=== PATIENT | female | born 1960 | race Caucasian/White ===

== ENCOUNTER 2023-08-26 19:03 | Inpatient (IN) | payer OTHER, MEDICAID ==
[~2023-08-26] VITALS: Ht 157.5 cm; Wt 91.7 kg
[2023-08-26 19:27] VITALS: BP_SYST 128; PULSE 105; RESP 24; TEMP 98.1; O2SAT 99
[2023-08-26] MEDS: IPRATROPIUM/ALBUTEROL SULFATE 3 ML AMPUL.NEB (DUONEB) INH ONE (19:42)
[2023-08-26] MEDS: methylPREDNISolone SOD SUCC/PF 62.5 MG/ML VIAL IVP ONE (20:18)
[2023-08-26 20:28] LABS: BASOPHILS % (AUTO) 0.3 % (0.0-2.0); EOSINOPHILS % (AUTO) 0.7 % (0.0-4.0); HEMATOCRIT 28.7 % (36-48); HEMOGLOBIN 9.7 g/dL (12.0-16.0); LYMPHOCYTES # (AUTO) 0.5 K/uL (1.0-5.5); LYMPHOCYTES % (AUTO) 8.7 % (20.5-51.5); MEAN CORPUSCULAR HEMOGLOBIN 31 pg (27-31); MEAN CORPUSCULAR HGB CONC 34 % (32-36); MEAN CORPUSCULAR VOLUME 91 fL (79.0-98.0); MONOCYTES # (AUTO) 0.7 K/uL (0.0-1.0); MONOCYTES % (AUTO) 11.5 % (1.7-9.3); NEUTROPHILS # (AUTO) 4.5 K/uL (1.8-7.7); NEUTROPHILS % (AUTO) 78.8 % (40.0-70.0); PLATELET COUNT (AUTO) 194 K/uL (130-430); RED BLOOD CELL COUNT(AUTO) 3.16 MIL/uL (4.2-6.2); RED CELL DISTRIBUTION WIDTH 15.7 % (9.0-15.0); WHITE BLOOD COUNT (AUTO) 5.7 K/uL (4.8-10.8)
[2023-08-26 20:46] LABS: CALCIUM 8.9 mg/dL (8.4-11.0); CARBON DIOXIDE 36 mmol/L (23-29); CHLORIDE 101 mmol/L (98-107); CREATININE 1.09 mg/dL (0.55-1.30); GFR AFRICAN AMERICAN 65 mL/min (>90); GLUCOSE 109 mg/dL (74-106); POTASSIUM 3.6 mmol/L (3.5-5.1); SODIUM SERUM 139 mmol/L (136-145); UREA NITROGEN, BLOOD 16 mg/dL (8-21)
[2023-08-26 20:49] LABS: GFR NON AFRICAN-AMERICAN 54 mL/min (>90)
[2023-08-26 20:50] LABS: ANION GAP < 3 (5-15)
[2023-08-26 20:53] LABS: INR 1.4 (0.8-1.2)
[2023-08-26 20:56] LABS: PROTHROMBIN TIME 14.5 SECS (9.5-12.5)
[2023-08-26 21:38] LABS: BILIRUBIN,URINE NEGATIVE (NEGATIVE); BLOOD, URINE 1+ (NEGATIVE); COLOR,URINE YELLOW (YELLOW); GLUCOSE,URINE NEGATIVE (NEGATIVE); KETONES,URINE NEGATIVE (NEGATIVE); LEUKOCYTE ESTERASE ,URINE NEGATIVE (NEGATIVE); NITRITE, URINE NEGATIVE (NEGATIVE); PROTEIN URINE 2+ (NEGATIVE); UROBILINOGEN,URINE 0.2 (0.2-1.0)
[2023-08-26] MEDS: NS 500 ML IV ONE (21:39)
[2023-08-26] MEDS ORDERED: iohexoL 350 mgI/mL, 100 ML INFUS..BTL IV ONE (22:01)
[2023-08-26 22:09] LABS: CLARITY/URINE HAZY (CLEAR)
[2023-08-26 22:10] LABS: BACTERIA,URINE FEW /HPF (None Seen); RBC,URINE 0-3 /HPF (0-3)
[2023-08-26 22:11] LABS: HYALINE CASTS, URINE 0-10 /LPF (None Seen); MUCUS,URINE 1+ /LPF (None Seen)
[2023-08-27] MEDS: ASPIRIN 325 MG TABLET PO ONE (00:22)
[2023-08-27] MEDS: FUROSEMIDE 20 MG/2 ML VIAL IVP ONE (02:45)
[2023-08-27] MEDS ORDERED: ALBUTEROL SULFATE 0.083% 2.5 MG/3 ML VIAL.NEB INH PRN (03:00)
[2023-08-27] MEDS ORDERED: ACETAMINOPHEN 325 MG TABLET PO PRN (03:00)
[2023-08-27] MEDS ORDERED: IPRATROPIUM BROM 0.5 MG/2.5 ML VIAL.NEB (ATROVENT) INH PRN (03:00)
[2023-08-27] MEDS ORDERED: ONDANSETRON HCL 4 MG/2 ML VIAL IVP PRN (03:00)
[2023-08-27] MEDS ORDERED: MORPHINE 2 MG/ML INJ. SYRINGE IVP PRN (03:00)
[2023-08-27] MEDS ORDERED: NITROGLYCERIN 0.4 MG TAB.SUBL SL PRN (03:30)
[2023-08-27 03:33] VITALS: BP_SYST 94; PULSE 80; O2SAT 96
[2023-08-27] MEDS ORDERED: cefTRIAXone 1 GM VIAL ONE (03:41)
[2023-08-27] MEDS: cefTRIAXone 1 GM in D5W 50 ML IV ONE (03:44)
[2023-08-27 03:55] LABS: BASOPHILS % (AUTO) 0.1 % (0.0-2.0); HEMOGLOBIN 10.1 g/dL (12.0-16.0); LYMPHOCYTES # (AUTO) 0.2 K/uL (1.0-5.5); LYMPHOCYTES % (AUTO) 6.6 % (20.5-51.5); MEAN CORPUSCULAR HEMOGLOBIN 30 pg (27-31); MEAN CORPUSCULAR HGB CONC 33 % (32-36); MEAN CORPUSCULAR VOLUME 92 fL (79.0-98.0); MONOCYTES # (AUTO) 0.1 K/uL (0.0-1.0); MONOCYTES % (AUTO) 2.9 % (1.7-9.3); NEUTROPHILS # (AUTO) 3.4 K/uL (1.8-7.7); NEUTROPHILS % (AUTO) 90.4 % (40.0-70.0); PLATELET COUNT (AUTO) 194 K/uL (130-430); RED BLOOD CELL COUNT(AUTO) 3.37 MIL/uL (4.2-6.2); WHITE BLOOD COUNT (AUTO) 3.7 K/uL (4.8-10.8)
[2023-08-27 04:19] LABS: ALBUMIN 3.2 g/dL (3.4-4.8); CALCIUM 8.8 mg/dL (8.4-11.0); CREATININE 1.08 mg/dL (0.55-1.30); TOTAL BILIRUBIN 0.5 mg/dL (0.0-1.0); TOTAL PROTEIN, SERUM 6.6 g/dL (6.4-8.3)
[2023-08-27] MEDS ORDERED: LACT10SO6 PO ×2 (04:23)
[2023-08-27] MEDS ORDERED: LAMO200T2 PO (04:23)
[2023-08-27] MEDS ORDERED: ASPI-1155 PO (04:23)
[2023-08-27] MEDS ORDERED: PRO20 PO (04:23)
[2023-08-27] MEDS ORDERED: CLIN-142 PO (04:23)
[2023-08-27] MEDS ORDERED: APIX5TAB PO (04:23)
[2023-08-27] MEDS ORDERED: ALEN10TA25 PO (04:23)
[2023-08-27] MEDS ORDERED: DIVA250T PO (04:23)
[2023-08-27] MEDS ORDERED: GUAI100S14 PO (04:23)
[2023-08-27] MEDS ORDERED: PHEN30TA49 PO (04:23)
[2023-08-27] MEDS ORDERED: MOM PO (04:23)
[2023-08-27] MEDS ORDERED: OMEP20CA15 PO (04:23)
[2023-08-27] MEDS ORDERED: CALC-939 PO (04:23)
[2023-08-27] MEDS ORDERED: MIDO10TA PO (04:23)
[2023-08-27] MEDS ORDERED: LEVE1000 PO (04:23)
[2023-08-27] MEDS ORDERED: FURO-149 PO (04:23)
[2023-08-27] MEDS ORDERED: FLUT16SP16 NS (04:23)
[2023-08-27] MEDS: MIDODRINE HCL 5 MG TABLET (PROAMATINE) PO SCH (09:00)
[2023-08-27] MEDS: ASPIRIN 81 MG TAB.CHEW PO SCH (09:00)
[2023-08-27] MEDS: FUROSEMIDE 40 MG/4 ML VIAL IVP SCH ×2 (09:00→14:58)
[2023-08-27] MEDS: FLUoxetine HCL 20 MG CAPSULE (PROzac) PO SCH (09:00)
[2023-08-27] MEDS ORDERED: OMEPRAZOLE Non-Formulary 20 MG CAPSULE.DR PO SCH (09:00)
[2023-08-27] MEDS: FUROSEMIDE 40 MG TABLET PO ONE (09:30)
[2023-08-27] MEDS: NOREPINEPHRINE BITARTRATE 4 MG in D5W 246 ML IV PRN (10:28)
[2023-08-27] MEDS: HYDROcodone/ACETAMIN 5-325 MG TAB (NORCO/ VICODIN) PO PRN (11:18)
[2023-08-27] MEDS: LOSARTAN POTASSIUM 25 MG TABLET PO SCH (11:35)
[2023-08-27] MEDS: DIVALPROEX SODIUM 250 MG TAB.SR.24H (DEPAKOTE ER) PO SCH (11:35)
[2023-08-27] MEDS: PANTOPRAZOLE SODIUM 40 MG TAB PO SCH (11:36)
[2023-08-27] MEDS: LamoTRIgine 100 MG TABLET PO SCH (11:36)
[2023-08-27] MEDS: levETIRAcetam 500 MG TABLET PO SCH (11:36)
[2023-08-27] MEDS: CALCIUM CARBONATE/VITAMIN D3 1 TAB TABLET PO SCH (11:36)
[2023-08-27] MEDS ORDERED: FUROSEMIDE 20 MG TABLET PO SCH (12:15)
[2023-08-27 12:52] LABS: INR 1.3 (0.8-1.2); PROTHROMBIN TIME 13.2 SECS (9.5-12.5)
[2023-08-27] MEDS ORDERED: FUROSEMIDE 40 MG/4 ML VIAL IVP SCH (13:00)
[2023-08-27] MEDS ORDERED: NOREPINEPHRINE 4 MG/4 ML VIAL IV ONE (15:11)
[2023-08-27 20:15] VITALS: BP_SYST 118; PULSE 97; RESP 17; TEMP 96.3
[2023-08-27 20:30] VITALS: BP_SYST 118; PULSE 97; RESP 17; TEMP 96.3; O2SAT 96
[2023-08-27] MEDS ORDERED: APIXABAN 2.5 MG TABLET PO SCH (21:00)
[2023-08-27] MEDS: DIVALPROEX SODIUM 250 MG TABLET(DEPAKOTE) PO ONE (21:58)
[2023-08-27] MEDS: MIDODRINE HCL 5 MG TABLET (PROAMATINE) ONE (21:59)
[2023-08-27 22:00] VITALS: BP_SYST 145; PULSE 104; RESP 18; O2SAT 96
[2023-08-27] MEDS: NOREPINEPHRINE BITARTRATE 16 MG in NS 234 ML IV PRN (22:02)
[2023-08-27] MEDS: PHENobarbital 30 MG TABLET PO SCH (22:03)
[2023-08-27 23:00] VITALS: BP_SYST 124; PULSE 95; RESP 17; O2SAT 97
[2023-08-28] VITALS (20 sets, daily range): BP systolic 97–123; PULSE 80–95; RESP 14–25; TEMP 96.5–97.8; O2SAT 95–99
[2023-08-28 04:42] LABS: BASOPHILS % (AUTO) 0.7 % (0.0-2.0); EOSINOPHILS # (AUTO) 0.1 K/uL (0.0-0.4); EOSINOPHILS % (AUTO) 1.6 % (0.0-4.0); HEMATOCRIT 29.7 % (36-48); HEMOGLOBIN 9.7 g/dL (12.0-16.0); LYMPHOCYTES # (AUTO) 1.1 K/uL (1.0-5.5); LYMPHOCYTES % (AUTO) 19.5 % (20.5-51.5); MEAN CORPUSCULAR HEMOGLOBIN 30 pg (27-31); MEAN CORPUSCULAR HGB CONC 33 % (32-36); MEAN CORPUSCULAR VOLUME 92 fL (79.0-98.0); MONOCYTES # (AUTO) 0.7 K/uL (0.0-1.0); MONOCYTES % (AUTO) 13.3 % (1.7-9.3); NEUTROPHILS # (AUTO) 3.5 K/uL (1.8-7.7); NEUTROPHILS % (AUTO) 64.9 % (40.0-70.0); PLATELET COUNT (AUTO) 193 K/uL (130-430); RED BLOOD CELL COUNT(AUTO) 3.24 MIL/uL (4.2-6.2); RED CELL DISTRIBUTION WIDTH 15.8 % (9.0-15.0); WHITE BLOOD COUNT (AUTO) 5.4 K/uL (4.8-10.8)
[2023-08-28 05:31] LABS: CALCIUM 8.6 mg/dL (8.4-11.0); CREATININE 1.05 mg/dL (0.55-1.30); POTASSIUM 3.4 mmol/L (3.5-5.1); TOTAL BILIRUBIN 0.3 mg/dL (0.0-1.0); TOTAL PROTEIN, SERUM 6.2 g/dL (6.4-8.3)
[2023-08-28] MEDS ORDERED: KCL 40 mEq in 100 mL (PREMIX) 100 ML IV PRN ×2 (07:30→11:30)
[2023-08-28] MEDS: KCL 20 mEq in 100 mL (PREMIX) 100 ML IV ONE (08:33)
[2023-08-28] MEDS: POTASSIUM CHLORIDE 20 MEQ TABLET.ER PO ONE (08:51)
[2023-08-28] MEDS ORDERED: APIXABAN 2.5 MG TABLET PO SCH (09:00)
[2023-08-28] MEDS: APIXABAN 2.5 MG TABLET PO SCH (20:53)
[2023-08-29] VITALS (8 sets, daily range): BP systolic 107–123; PULSE 81–86; RESP 15–20; TEMP 97–98.4; O2SAT 95–100
[2023-08-29 04:42] LABS: BASOPHILS % (AUTO) 0.7 % (0.0-2.0); EOSINOPHILS # (AUTO) 0.1 K/uL (0.0-0.4); EOSINOPHILS % (AUTO) 1.9 % (0.0-4.0); HEMATOCRIT 30.4 % (36-48); HEMOGLOBIN 9.9 g/dL (12.0-16.0); LYMPHOCYTES # (AUTO) 0.9 K/uL (1.0-5.5); LYMPHOCYTES % (AUTO) 16.8 % (20.5-51.5); MEAN CORPUSCULAR HEMOGLOBIN 30 pg (27-31); MEAN CORPUSCULAR HGB CONC 33 % (32-36); MEAN CORPUSCULAR VOLUME 92 fL (79.0-98.0); MONOCYTES # (AUTO) 0.7 K/uL (0.0-1.0); MONOCYTES % (AUTO) 11.7 % (1.7-9.3); NEUTROPHILS # (AUTO) 3.9 K/uL (1.8-7.7); NEUTROPHILS % (AUTO) 68.9 % (40.0-70.0); PLATELET COUNT (AUTO) 214 K/uL (130-430); RED CELL DISTRIBUTION WIDTH 15.7 % (9.0-15.0); WHITE BLOOD COUNT (AUTO) 5.6 K/uL (4.8-10.8)
[2023-08-29 04:59] LABS: ALBUMIN 3.1 g/dL (3.4-4.8); CALCIUM 8.5 mg/dL (8.4-11.0); CREATININE 0.9 mg/dL (0.55-1.30); POTASSIUM 3.5 mmol/L (3.5-5.1); TOTAL BILIRUBIN 0.4 mg/dL (0.0-1.0); TOTAL PROTEIN, SERUM 6.3 g/dL (6.4-8.3)
[2023-08-29] MEDS: FUROSEMIDE 40 MG/4 ML VIAL IVP SCH (18:06)
[2023-08-30] VITALS (9 sets, daily range): BP systolic 105–129; PULSE 79–92; RESP 18–20; TEMP 96.5–97.7; O2SAT 95–98
[2023-08-30 05:13] LABS: BASOPHILS % (AUTO) 0.6 % (0.0-2.0); EOSINOPHILS % (AUTO) 0.9 % (0.0-4.0); HEMATOCRIT 31.8 % (36-48); HEMOGLOBIN 10.3 g/dL (12.0-16.0); LYMPHOCYTES # (AUTO) 0.8 K/uL (1.0-5.5); LYMPHOCYTES % (AUTO) 14.5 % (20.5-51.5); MEAN CORPUSCULAR HEMOGLOBIN 30 pg (27-31); MEAN CORPUSCULAR HGB CONC 32 % (32-36); MEAN CORPUSCULAR VOLUME 92 fL (79.0-98.0); MONOCYTES # (AUTO) 0.7 K/uL (0.0-1.0); MONOCYTES % (AUTO) 11.7 % (1.7-9.3); NEUTROPHILS # (AUTO) 4.1 K/uL (1.8-7.7); NEUTROPHILS % (AUTO) 72.3 % (40.0-70.0); PLATELET COUNT (AUTO) 264 K/uL (130-430); RED BLOOD CELL COUNT(AUTO) 3.46 MIL/uL (4.2-6.2); RED CELL DISTRIBUTION WIDTH 16.3 % (9.0-15.0); WHITE BLOOD COUNT (AUTO) 5.7 K/uL (4.8-10.8)
[2023-08-30 05:17] LABS: ALBUMIN 3.3 g/dL (3.4-4.8); CALCIUM 8.8 mg/dL (8.4-11.0); CREATININE 0.87 mg/dL (0.55-1.30); POTASSIUM 3.6 mmol/L (3.5-5.1); TOTAL BILIRUBIN 0.4 mg/dL (0.0-1.0); TOTAL PROTEIN, SERUM 6.9 g/dL (6.4-8.3)
[2023-08-30] MEDS: FUROSEMIDE 40 MG TABLET PO ONE (15:06)
[2023-08-31] VITALS (8 sets, daily range): BP systolic 122–134; PULSE 91–100; RESP 16–18; TEMP 96.2–98.6; O2SAT 95–99
[2023-08-31 06:58] LABS: BASOPHILS % (AUTO) 0.5 % (0.0-2.0); EOSINOPHILS % (AUTO) 0.2 % (0.0-4.0); HEMATOCRIT 32.9 % (36-48); HEMOGLOBIN 10.5 g/dL (12.0-16.0); LYMPHOCYTES # (AUTO) 0.6 K/uL (1.0-5.5); LYMPHOCYTES % (AUTO) 11.7 % (20.5-51.5); MEAN CORPUSCULAR HEMOGLOBIN 30 pg (27-31); MEAN CORPUSCULAR HGB CONC 32 % (32-36); MEAN CORPUSCULAR VOLUME 92 fL (79.0-98.0); MONOCYTES # (AUTO) 0.6 K/uL (0.0-1.0); MONOCYTES % (AUTO) 12.5 % (1.7-9.3); NEUTROPHILS # (AUTO) 3.8 K/uL (1.8-7.7); NEUTROPHILS % (AUTO) 75.1 % (40.0-70.0); PLATELET COUNT (AUTO) 274 K/uL (130-430); RED BLOOD CELL COUNT(AUTO) 3.56 MIL/uL (4.2-6.2); RED CELL DISTRIBUTION WIDTH 16.5 % (9.0-15.0); WHITE BLOOD COUNT (AUTO) 5.1 K/uL (4.8-10.8)
[2023-08-31 07:06] LABS: ALBUMIN 3.4 g/dL (3.4-4.8); CALCIUM 9.3 mg/dL (8.4-11.0); CREATININE 1.03 mg/dL (0.55-1.30); POTASSIUM 3.9 mmol/L (3.5-5.1); TOTAL BILIRUBIN 0.7 mg/dL (0.0-1.0); TOTAL PROTEIN, SERUM 6.7 g/dL (6.4-8.3)
[2023-08-31] MEDS: FUROSEMIDE 40 MG TABLET PO SCH (08:12)
[2023-08-31] MEDS ORDERED: MIDO5TAB4 PO (12:16)
== END 2023-08-31 22:15 | DRG 291 ==
LOC: SED 19:03 → STU 08-27 02:48 → SIC 08-27 20:15 → STU 08-28 23:30
PROVIDERS: ADMIT Internal Medicine; ATTEND Internal Medicine
DX: I11.0 Hypertensive heart disease with heart failure (principal); I50.23 Acute on chronic systolic (congestive) heart failure; J96.21 Acute and chronic respiratory failure with hypoxia; R57.0 Cardiogenic shock; Z66 Do not resuscitate; G40.909 Epilepsy, unspecified, not intractable, without status epilepticus; G80.8 Other cerebral palsy; Z79.82 Long term (current) use of aspirin; Z79.899 Other long term (current) drug therapy
CPT/HCPCS: 36415; 71045; 71275; 76604; 80048; 80053; 81000; 81001; 81015; 83880; 84132; 84484; 85025; 85379; 85610; 85730; 87040; 87081; 93005; 93306; 94070; 94640; 94760; 99285; G0378; J0696; J1940; J2930; J3480; J7050; J7060; Q9967